=== PATIENT | male | born 1980 | race Caucasian/White ===

== ENCOUNTER → 2019-05-06 | Outpatient (CLI) | payer MEDICARE, OTHER ==
--- NOTE | 2019-05-07 03:18 | MR ---
EXAMINATION TYPE: MR ankle RT wo con DATE OF EXAM: 05/06/2019 COMPARISON: HISTORY: Right achilles tendon defect, Pain in rt ankle achilles area Standard multiplanar, multisequence MRI departmental protocol Multiplanar, multisequence images of the right ankle were acquired. FINDINGS: There is some soft tissue edema anterior to the Achilles tendon. The ankle mortise is anato raj. Ankle joint spaces are fairly normal. There are plantar and Achilles calcaneal spurs. The medial and lateral flexor tendons of the ankle appear intact. The collateral ligaments are intact. I see no focal bone destruction. Achilles tendon appears intact. There is some fluid around the flexor pollic is tendons. IMPRESSION: Soft tissue edema anterior to the Achilles tendon consistent with nonspecific inflammatory process. N o fracture. No Achilles tendon tear. There is fluid around the flexor pollicis tendon consistent with mild tendinitis. Plantar and Achilles calcaneal spurring. There is mild thickening of the plantar fascia.
== END | disposition home or self-care (01) ==
LOC: RADMRIMAIN 14:31
PROVIDERS: ATTEND Podiatrist Foot & Ankle Surgery
DX: M79.89 Other specified soft tissue disorders (principal); M76.61 Achilles tendinitis, right leg; M77.31 Calcaneal spur, right foot; M66.879 Spontaneous rupture of other tendons, unspecified ankle and foot

== ENCOUNTER → 2021-05-12 | Outpatient (CLI) | payer MEDICARE, OTHER | END | disposition home or self-care (01) ==

== ENCOUNTER → 2021-05-19 | Outpatient (CLI) | payer MEDICARE, OTHER ==
--- NOTE | 2021-05-19 17:40 | XR ---
EXAMINATION TYPE: XR chest 2V DATE OF EXAM: 05/19/2021 CLINICAL HISTORY: R91.8. Pre-MRI clearance. History of BB of left lower anterior rib area. TECHNIQUE: Frontal and lateral view of the chest. COMPARISON: None FINDINGS: There is a BB of the left upper quadrant anteriorly, likely just below the level of the ab dominal wall. Distance from the skin cannot be assessed as the skin is not included anteriorly on lat eral view at the level of the BB. Low lung volumes. The cardiomediastinal silhouette is within normal limits for size. Pulmonary vascul ature is normal. There is no focal air space opacity. No pleural effusion. No pneumothorax seen. No acute displaced osseous fracture. IMPRESSION: BB of the left upper quadrant anteriorly, appears likely just below the level of the abdominal wall.
== END | disposition home or self-care (01) ==
LOC: RADXRMAIN 14:42
PROVIDERS: ATTEND Internal Medicine
DX: R91.8 Other nonspecific abnormal finding of lung field (principal)
CPT/HCPCS: 71046

== ENCOUNTER → 2021-07-26 | Outpatient (CLI) | payer MEDICARE, OTHER ==
[2021-07-26 22:16] LABS: Hemoglobin A1C 8.2 % (4.0-6.0)
== END | disposition home or self-care (01) ==
LOC: LABWHC1 11:22
PROVIDERS: ATTEND Internal Medicine
DX: R73.9 Hyperglycemia, unspecified (principal)
CPT/HCPCS: 36415; 83036

== ENCOUNTER → 2023-04-14 | Outpatient (CLI) | payer MEDICARE, OTHER ==
[2023-04-15 09:58] LABS: Urine Alcohol Negative (Negative)
[2023-04-15 13:04] LABS: Urine Barbiturate Negative (Negative); Urine Cocaine Negative (Negative); Urine Methadone Negative (Negative); Urine Opiates Negative (Negative); Urine Phencyclidine Negative (Negative)
== END | disposition home or self-care (01) ==
LOC: LABWHC1 11:40
PROVIDERS: ATTEND Student in an Organized Health Care Education/Training Program
DX: F41.8 Other specified anxiety disorders (principal); E11.65 Type 2 diabetes mellitus with hyperglycemia
CPT/HCPCS: 36415; 80306; 83036

== ENCOUNTER 2024-01-19 05:27 | Emergency (ER) | payer MEDICARE, OTHER ==
[2024-01-19 05:46] VITALS: TEMP 97.7
[2024-01-19] MEDS: ASPIRIN 81 MG PO STA (06:04)
[2024-01-19 06:14] LABS: Basophils % (A) 0 %; Eosinophils # (A) 0.2 k/uL (0-0.7); Eosinophils % (A) 2 %; HCT 44.4 % (39.0-53.0); HGB 15.5 gm/dL (13.0-17.5); Lymphocytes % (A) 24 %; MCH 30.2 pg (25.0-35.0); MCHC 34.9 g/dL (31.0-37.0); MCV 86.6 fL (80.0-100.0); Mean Platelet Volume 7.7; Monocytes # (A) 0.5 k/uL (0-1.0); Monocytes % (A) 6 %; Neutrophils # (A) 5.5 k/uL (1.3-7.7); Neutrophils % (A) 66 %; Platelet Count 286 k/uL (150-450); RBC 5.13 m/uL (4.30-5.90); WBC 8.3 k/uL (3.8-10.6)
--- NOTE | 2024-01-19 06:14 | ED ---
Chest Pain HPI - General Chief Complaint: Chest Pain Stated Complaint: Chest Pain Time Seen by Provider: 01/19/24 05:44 Source: patient, RN notes reviewed Mode of arrival: ambulatory Limitations: no limitations - History of Present Illness Initial Comments: 43-year-old male presents emergency department with chief complaint of chest pain. Patient states pain started around 11 PM. Patient states centralized left-sided nonradiating sharp pain. Patient states that he just felt uncomfortable. He denies any associated shortness of breath fever chills cough cold-like symptoms. Does admit that he has a history of hypertension and diabetes on oral medications. He also states that he is on Ozempic. Patient admits to family history of cardiac disease in which he states his mother in March after she had multiple stents, congestive heart failure. Patient denies any leg pain leg swelling no back pain - Related Data Allergies Allergy/AdvReac Type Severity Reaction Status Date / Time codeine Allergy Rash/Hives Verified 01/19/24 05:32 Review of Systems ROS Statement: Those systems with pertinent positive or pertinent negative responses have been documented in the HPI. ROS Other: All systems not noted in ROS Statement are negative. EKG Findings - EKG Comments: EKG Findings:: EKG performed at 5: 36 sinus rhythm with a rate of 61 IL 182 QRS 101 QT/QTc 394/396 - EKG Results: EKG: interpreted by [facility] Past Medical History Past Medical History: Asthma History of Any Multi-Drug Resistant Organisms: None Reported Past Surgical History: No Surgical Hx Reported Past Psychological History: Depression Smoking Status: Current every day smoker Past Alcohol Use History: Occasional Past Drug Use History: None Reported General Exam Limitations: no limitations General appearance: alert, in no apparent distress Head exam: Present: atraumatic, normocephalic, normal inspection Eye exam: Present: normal appearance, PERRL, EOMI. Absent: scleral icterus, conjunctival injection, periorbital swelling ENT exam: Present: normal exam, normal oropharynx, mucous membranes moist Neck exam: Present: normal inspection, full ROM. Absent: tenderness, meningismus, lymphadenopathy Respiratory exam: Present: normal lung sounds bilaterally. Absent: respiratory distress, wheezes, rales, rhonchi, stridor, chest wall tenderness Cardiovascular Exam: Present: regular rate, normal rhythm, normal heart sounds. Absent: systolic murmur, diastolic murmur, rubs, gallop, clicks GI/Abdominal exam: Present: soft, normal bowel sounds. Absent: distended, tenderness, guarding, rebound, rigid Course Vital Signs 01/19/24 01/19/24 05:29 05:48 Temperature 97.7 F Pulse Rate 71 60 Respiratory 18 19 Rate Blood Pressure 146/83 139/85 O2 Sat by Pulse 97 98 Oximetry Chest Pain MDM - MDM Was pt. sent in by a medical professional or institution (, PA, SUPERVISOR SHUTTLE FITTING, urgent care, hospital, or fdc...) When possible be specific @ -No Did you speak to anyone other than the patient for history (EMS, parent, family, police, friend...)? What history was obtained from this source @ -No Did you review nursing and triage notes (agree or disagree)? Why? @ -I reviewed and agree with nursing and triage notes Were old charts reviewed (outside hosp., previous admission, EMS record, old EKG, old radiological studies, urgent care reports/EKG's, fdc records)? Report findings @ -No old charts were reviewed Differential Diagnosis (chest pain, altered mental status, abdominal pain women, abdominal pain men, vaginal bleeding, weakness, fever, dyspnea, syncope, headache, dizziness, GI bleed, back pain, seizure, CVA, palpatations, mental health, musculoskeletal)? @ -Differential Chest Pain: Stable Angina, Unstable Angina, STEMI, NSTEMI Aortic Dissection, Pneumothorax, Musculoskeletal, Esophageal Spasm GERD, Cholecystitis, Pancreatitis, Zoster, this is not meant to be an all-inclusive list. EKG interpreted by me (3pts min.). @ -As above X-rays interpreted by me (1pt min.). @ -Chest x-ray shows no acute cardiopulmonary process no acute change from prior chest x-ray CT interpreted by me (1pt min.). @ -None done U/S interpreted by me (1pt. min.). @ -None done What testing was considered but not performed or refused? (CT, X-rays, U/S, labs)? Why? @ -None What meds were considered but not given or refused? Why? @ -None Did you discuss the management of the patient with other professionals (professionals i.e. , PA, SUPERVISOR SHUTTLE [employer]TING, lab, RT, psych nurse, social media assistant, chute puller, teacher, artillery officer, adult protective caseworker)? Give summary @ -No Was smoking cessation discussed for >3mins.? @ -No Was critical care preformed (if so, how long)? @ -No Were there social determinants of health that impacted care today? How? (Homelessness, low income, unemployed, alcoholism, drug addiction, transpo rtation, low edu. Level, literacy, decrease access to med. care, assisted, rehab)? @ -No Was there de-escalation of care discussed even if they declined (Discuss DNR or withdrawal of care, Hospice)? DNR status @ -No What co-morbidities impacted this encounter? (DM, HTN, Smoking, COPD, CAD, Cancer, CVA, ARF, Chemo, Hep., AIDS, mental health diagnosis, sleep apnea, morbid obesity)? @ -Diabetes, hypertension Was patient admitted / discharged? Hospital course, mention meds given and route, prescriptions, significant lab abnormalities, going to OR and other pertinent info. @ -Discharge patient had complete workup including labs, EKG and chest x-ray no acute findings I did recommend the patient to be admitted given that he has multiple risk factors including age, weight, hypertension, diabetes and family history. Patient states that is his 's birthday and he has a family that works at cardiology and states he will follow-up. He does understand the risk of leaving and including possible [place], . Return parameters were discussed. Undiagnosed new problem with uncertain prognosis? @ -No Drug Therapy requiring intensive monitoring for toxicity (Heparin, Nitro, Insulin, Cardizem)? @ -No Were any procedures done? @ -No Diagnosis/symptom? @ -Chest pain Acute, or Chronic, or Acute on Chronic? @ -Acute Uncomplicated (without systemic symptoms) or Complicated (systemic symptoms)? @ -complicated Side effects of treatment? @ -No Exacerbation, Progression, or Severe Exacerbation? @ -No Poses a threat to life or bodily function? How? (Chest pain, [place], [place], pneumonia, PE, COPD, DKA, ARF, appy, cholecystitis, CVA, Diverticulitis, Homicidal, Suicidal, threat to staff... and all critical care pts) @ -Yes possible ACS Disposition Clinical Impression: Chest pain Disposition: HOME SELF-CARE Condition: Stable Instructions (If sedation given, give patient instructions): Chest Pain (ED) Additional Instructions: Please return to the Emergency Department if symptoms worsen or any other concerns. Is patient prescribed a controlled substance at d/c from ED?: No Referrals: David Lanza MD [Primary Care Provider] - 1-2 days Time of Disposition: 07:42
[2024-01-19 06:29] LABS: Partial Thromboplastin Time 24.3 sec (22.0-30.0); Prothrombin Time 10.6 sec (10.0-12.5)
[2024-01-19 06:36] LABS: ALT 42 U/L (4-49); AST 27 U/L (17-59); African American GFR (CKD) >90 (>60 ml/min/1.73 sqM); Alkaline Phosphatase 67 U/L (38-126); Anion Gap 4 mmol/L; Blood Urea Nitrogen 14 mg/dL (9-20); Calcium 9.3 mg/dL (8.4-10.2); Carbon Dioxide 27 mmol/L (22-30); Chloride 104 mmol/L (98-107); Glucose 139 mg/dL (74-99); Non-African American GFR(CKD) >90 (>60 ml/min/1.73 sqM); Potassium 4.1 mmol/L (3.5-5.1); Sodium 135 mmol/L (137-145); Total Bilirubin 1.2 mg/dL (0.2-1.3); Total Protein 7.1 g/dL (6.3-8.2)
--- NOTE | 2024-01-19 08:19 | XR ---
EXAMINATION TYPE: XR chest 2V DATE OF EXAM: 01/19/2024 6:29 AM CLINICAL INDICATION:Male, 43 years old with history of Chest Pain; [facility] COMPARISON: 05/19/2021 TECHNIQUE: XR chest 2V. Frontal and lateral views of the chest.. FINDINGS: Lines/Tubes/Devices: No indwelling lines are seen. EKG leads overlie the chest. Heart/mediastinum: Heart size upper normal. Mediastinum appears within normal limits. Pulmonary vascularity: Not increased, Lungs/Pleura: Lungs appear stable. There is no evidence of pleural effusion, focal consolidation, or pneumothorax. Musculoskeletal: No acute osseous abnormality demonstrated in the limits of the exam. Degenerative c hanges of the spine and shoulders. Other findings: None. IMPRESSION: No acute cardiopulmonary abnormality.
[2024-01-19 08:44] VITALS: BP 136/78; PULSE 72; RESP 18
== END 2024-01-19 07:25 | disposition home or self-care (01) ==
LOC: EC 05:27
DX: R07.89 Other chest pain (principal); E11.9 Type 2 diabetes mellitus without complications; I10 Essential (primary) hypertension; J45.909 Unspecified asthma, uncomplicated; F17.200 Nicotine dependence, unspecified, uncomplicated; Z88.5 Allergy status to narcotic agent
CPT/HCPCS: 36415; 71046; 80053; 83735; 84484; 85025; 85379; 85610; 85730; 93005; 99285

== ENCOUNTER → 2024-01-24 | Outpatient (CLI) | payer MEDICARE, OTHER ==
[2024-01-24 16:03] LABS: ALT 62 U/L (10-49); AST 29 U/L (14-35); Chol/HDL Ratio 2.64 Ratio; LDL Cholesterol,Calculated 60.4 mg/dL (0.0-131.0); VLDL Calculation 14.84 mg/dL (5.00-40.00)
== END | disposition home or self-care (01) ==
LOC: LABWHC1 08:43
PROVIDERS: ATTEND Internal Medicine
DX: E78.2 Mixed hyperlipidemia (principal)
CPT/HCPCS: 36415; 80061; 84450; 84460

== ENCOUNTER → 2024-05-01 | Outpatient (CLI) | payer MEDICARE, OTHER ==
[2024-05-01 16:06] VITALS: BP 122/73; PULSE 68; RESP 16; TEMP 98
--- NOTE | 2024-05-01 18:15 | P.SLEEP ---
History of Present Illness DATE: 05/01/2024 CONSULTATION/NEW PATIENT EVALUATION HISTORY OF PRESENT ILLNESS/SLEEP-WAKE EVALUATION: 43-year-old gentleman had b een evaluated in the sleep center for possible obstructive sleep apnea hypopnea syndrome. SLEEP SCHEDULE: Usually sleep schedule from 8 to 9 PM to 7 AM. FALLING ASLEEP: No problems with falling asleep. DURING SLEEP: Patient snores and has episodes of stop breathing during the sleep by his . Patient has multiple awakenings from sleep with 1 episode of nocturia. No history of hypnogogical hallucinations, sleep paralysis, or cataplexy. DURING THE DAY/WAKE STATE: In the morning patient wake up tired, has problems with memory, irritability, depression. Morley sleepiness scale is an extremely high range of 19. Patient although does not take naps. PAST MEDICAL HISTORY: ADHD, hypertension, episodes of angina, acid reflux, depression, hyperlipidemia. PAST SURGICAL HISTORY: Left eye surgery, vasectomy. MEDICATIONS: Please see below. SOCIAL HISTORY: Please see below. FAMILY HISTORY: Asthma, hypertension, hyperlipidemia, diabetes mellitus. REVIEW OF SYSTEMS: Loud snoring, multiple awakenings from sleep, sleepiness during the day. No fevers. No double vision. No recent chest pain. No shortness of breath. No abdominal pain. No bleeding episodes. No blood in urine. No sei zure episodes. PHYSICAL EXAMINATION: GENERAL: A pleasant patient without any distress. VITAL SIGNS: Please see below, weight is 327 pounds, BMI 44.9. HEENT: PERRLA, EOMI. Evaluation of oropharynx showed tongue protrudes midline, low position of soft palate Mallampati 34. NECK: Supple. No JVD. Thyroid is not palpable. 19-3/4 inches in circumference. LUNGS: Clear to percussion and to auscultation. Good air exchange. No wheezing or rhonchi. HEART: S1, S2 regular. No murmurs, gallops or rubs. ABDOMEN: Soft and nontender. Bowel sounds are present. No organomegaly appreciated. EXTREMITIES: No clubbing or cyanosis. TEST INSPECTION ENGINEER: Awake, alert, and oriented x3. Cranial nerves 2 to 7 intact. There is no fasciculation or atrophy noted. No focal deficits observed. ASSESSMENT: 1. Loud snoring, witnessed episodes of stop breathing during the sleep, extremely low position of soft palate, extremely wide neck 19 and three-quarter inches in circumference, sleepiness with the very high Morley Sleepiness Scale of 19. Obstructive sleep apnea hypopnea syndrome. 2. Obesity, BMI 44.9. 3. ADHD. 4. Hypertension. 5 history of episode of chest pain. 6 . Acid reflux. 7. Depression. 8. Hyperlipidemia. 9 . Status post vasectomy. 10. Status post left eye surgery. PLAN: 1. Polysomnography for evaluation of patient's breathing during sleep. 2. Following plan after reading sleep study. 3. Preferable position during sleep on the side. 4. No driving if patient feels any sleepiness. Patient is aware of civil and criminal liability for unsafe driving. 5. Sleep hygiene with regular sleep time for at least 7.5-8 hours. 6. Watching and losing weight. Thank you very much for referring this patient for consultation. Sincerely, Didier Cole MD, PhD, FAASM. Diplomat of [place] [employer], Sleep Medicine Board by [employer] [employer] [employer] Analyst of [facility] [place] Past Medical History Past Medical History: Asthma, Diabetes Mellitus, GERD/Reflux, Hypertension History of Any Multi-Drug Resistant Organisms: None Reported Past Surgical History: No Surgical Hx Reported Past Anesthesia/Blood Transfusion Reactions: No Reported Reaction Past Psychological History: Depression Smoking Status: Current every day smoker Past Alcohol Use History: Occasional Past Drug Use History: None Reported - Past Family History Mother Family Medical History: Asthma, Diabetes Mellitus, Hyperlipidemia, Hypertension, Rheumatoid Arthritis (RA) Medications and Allergies Allergies Allergy/AdvReac Type Severity Reaction Status Date / Time codeine Allergy Rash/Hives Verified 01/19/24 05:32 Physical Exam Vitals: Vital Signs Temp Pulse Resp BP Pulse Ox 05/01/24 16:05 98 F 68 16 122/73 97 Intake and Output 05/01/24 05/01/24 05/01/24 06:59 14:59 22:59 Other: Weight 148.325 kg Sleep Note - Sleep Data ESS Total: 19 - Sleep Note Sleep Note: Temperature: 98 F Pulse Rate: 68 Respiratory Rate: 16 Blood Pressure: 122/73 SpO2: 97 Height: 5 ft 11.5 in Weight: 148.325 kg BMI: Neck Circumference: 19.7
== END ==
LOC: 3 N SLEEP 15:23
PROVIDERS: ATTEND Internal Medicine
DX: G47.33 Obstructive sleep apnea (adult) (pediatric) (principal); I10 Essential (primary) hypertension; E66.9 Obesity, unspecified; K21.9 Gastro-esophageal reflux disease without esophagitis; F32.A Depression, unspecified; F90.9 Attention-deficit hyperactivity disorder, unspecified type; E78.5 Hyperlipidemia, unspecified; F17.200 Nicotine dependence, unspecified, uncomplicated; Z98.52 Vasectomy status; Z98.890 Other specified postprocedural states; Z87.09 Personal history of other diseases of the respiratory system; Z68.41 Body mass index [BMI] 40.0-44.9, adult; Z88.5 Allergy status to narcotic agent
CPT/HCPCS: 99211

== ENCOUNTER 2024-05-06 19:51 | Outpatient (CLI) | payer MEDICARE, OTHER ==
--- NOTE | 2024-05-07 12:38 | P.PCN ---
Description of Procedure: POLYSOMNOGRAPHY REPORT PROCEDURE(S)/DATE(S): Polysomnography 05/06/2024 CLINICAL: Patient has been seen in the sleep center for evaluation of obstructive sleep apnea-hypopnea syndrome. Please see my consultation. Sleep study has been done for evaluation of patient breathing during the sleep. PROCEDURE: The standard montage for clinical polysomnography included the electroencephalogram, the electrooculogram, the mentalis surface electromyography and Lead II cardiography. The respiratory battery consisted of measurements of nasal/buccal air flow, pressure transducer measurements from nose, thoracic and/or abdominal effort and intercostal surface electromyography. Video monitoring has been done to check for any parasomnia events. Nocturnal oxyhemoglobin saturations were obtained by finger oximetry. Step-longo titration with positive airway pressure was utilized to control the respiratory events, if necessary. RESULTS: During the diagnostic sleep study sleep efficiency was decreased to 79.7%. Latency to sleep onset was normal 17.5 min. Sleep architecture showed stage NI was increased to 14.8%, Delta sleep was absent 0%, REM sleep was absent 0%. Respiratory channel showed 0 obstructive apneas, 0 mixed apneas, 0 central apneas, 46 hypopneas with lowest oxygen level 80%. Total apnea hypopnea index was 9.4. Heart rate was in the range between 58 and 69, average 63. EMG showed 21.4 periodic limb movements per hour with 0.2 micro-arousals per hour. IMPRESSIONS: 1. Mild obstructive sleep apnea hypopnea syndrome. 2. Periodic limb movements have been documented. 3. Hypertension Please see other impressions from consultation PLAN: 1. The patient will have AutoPAP treatment for correction of respiratory abnormalities during the sleep. 2. Losing weight program. 3. Sleep hygiene with regular time in bed for at least 7-1/2 hours. 4. No driving if feeling sleepiness. 5. Please check iron profile including ferritin level. Low level of iron may increase the risk for periodic limb movements. 6. I will see patient for follow-up visit to evaluate clinical response on treatment, compliance with treatment and [place] adjustments related to mask fitting pressure and humidification. Thank you very much for allowing me to participate in the management of your patient. Sincerely, Didier Cole MD, PhD, FAASM. Diplomat of [place] [employer], Sleep Medicine Board by [place] [employer] Project Manager of [facility] [place]
== END 2024-05-07 04:20 | disposition home or self-care (01) ==
LOC: 3 N SLEEP 19:51
PROVIDERS: ATTEND Internal Medicine
DX: G47.33 Obstructive sleep apnea (adult) (pediatric) (principal); I10 Essential (primary) hypertension; G47.61 Periodic limb movement disorder; Z88.5 Allergy status to narcotic agent
CPT/HCPCS: 95810

== ENCOUNTER → 2024-06-02 | Outpatient (CLI) | payer MEDICARE, OTHER ==
[2024-06-02 15:26] VITALS: BP 123/72; PULSE 76; RESP 16; TEMP 98
--- NOTE | 2024-06-02 16:48 | P.PROGSL ---
Subjective DATE: 06/02/2024 FOLLOW UP VISIT. Patient returned to sleep center for follow-up visit to discuss results of polysomnogram and following plan . I discussed results of sleep study with patient in details. Patient asked questions about inspire options of treatment of obstructive sleep apnea hypopnea syndrome. I explained this procedure to patient in details. At the present time treatment with inspire is no document recommended for people with obesity. [place] sleepiness scale is 2. MEDICATIONS: Reviewed, please see below. During physical exam: GENERAL: A pleasant patient without any distress. VITAL SIGNS: Please see below, weight 330.6 pounds, BMI about 44. HEENT: PERRLA, EOMI. NECK: Supple. No JVD. LUNGS: Clear to percussion and to auscultation. Good air exchange. No wheezing or rhonchi. HEART: S1, S2 regular. ABDOMEN: Soft and nontender. EXTREMITIES: No clubbing or cyanosis. EMPLOYEE BENEFITS COORDINATOR: Awake, alert, and oriented x3. No focal deficit. Impressions: 1. Obstructive sleep apnea hypopnea syndrome in mild range 2. Periodic limb movements 21.4/h with only 0.2 micro arousals per hour. 3. Hypertension. 4. Obesity, BMI in the range of 44. 5. History of episodes of chest pain. 6. Acid reflux. 7. Depression. 8. Hyperlipidemia. 9. Status post vasectomy. 10 status post left eye surgery Plan: 1. Patient will be started on treatment with AutoPap and should use equipment every night for the whole night. 2. Sleep hygiene with regular time in bed for at least 8 hours. 3. I will see patient for follow-up visit to evaluate clinical response on treatment, compliance with treatment and [place]nes adjustments related to mask fitting pressure and humidification. 4. Precautions related to driving. No driving if feel any sleepiness. Patient is aware about civil and criminal liability for unsafe driving, promised to follow recommendations. 5. Please check iron profile including ferritin level, low level of iron may increase risk for periodic limb movements. 6. Follow up visit in 13 months. Thank you very much for allowing me to participate in the management of your patient. Didier Cole MD, PhD, FAASM. Diplomat of [place] [employer], Sleep Medicine Board by [place] [employer] Machine Overhauler of [facility] [place] cc: David Lanza MD Objective - Vital Signs Vital Signs: Vital Signs Temp 98 F 06/02/24 15:26 Pulse 76 06/02/24 15:26 Resp 16 06/02/24 15:26 BP 123/72 06/02/24 15:26 Pulse Ox 96 06/02/24 15:26 FiO2 Intake & Output 06/01/24 06/02/24 06/02/24 18:59 06:59 18:59 Weight 148.325 kg Home Medications: Home Medications Medication Instructions Recorded Confirmed Type Omeprazole [PriLOSEC] 06/02/24 History Semaglutide [Ozempic] 0.25 mg SQ 06/02/24 History Venlafaxine HCl [Effexor] 75 mg PO DAILY 06/02/24 06/02/24 History lisinopriL [Zestril] 20 mg PO DAILY 06/02/24 06/02/24 History
== END ==
LOC: 3 N SLEEP 14:50
PROVIDERS: ATTEND Internal Medicine
DX: G47.33 Obstructive sleep apnea (adult) (pediatric) (principal); G47.61 Periodic limb movement disorder; I10 Essential (primary) hypertension; E66.9 Obesity, unspecified; K21.9 Gastro-esophageal reflux disease without esophagitis; F32.A Depression, unspecified; E78.5 Hyperlipidemia, unspecified; Z99.89 Dependence on other enabling machines and devices; Z98.890 Other specified postprocedural states; Z98.52 Vasectomy status; Z68.41 Body mass index [BMI] 40.0-44.9, adult; Z79.899 Other long term (current) drug therapy; Z88.5 Allergy status to narcotic agent
CPT/HCPCS: 99212